=== PATIENT | female | born 1955 | race Caucasian/White ===

== ENCOUNTER → 2025-01-10 | Day surgery (SDC) | payer MEDICARE ==
[~2025-01-10] MED LIST: Sodium Bicarbonate 2.5 MEQ/5 ML SDV ONE
[2025-01-10 09:31] LABS: Hematocrit 33.4 % (34.9-44.5); Hemoglobin 11.6 g/dL (12.0-15.5); Mean Corpuscular Hemoglobin 35.2 pg (27.0-33.0); Mean Corpuscular Volume 101.2 fL (81.6-98.3); Platelet Count 150 10x3/uL (150-450); Red Blood Cell (RBC) Count 3.30 10x6/uL (3.90-5.03); White Blood Cell (WBC) Count 2.06 10x3/uL (3.5-10.5)
[2025-01-10 09:38] LABS: INR-International Normal Ratio 1.1; Prothrombin Time 11.9 sec (9.5-12.1)
[2025-01-10 09:51] VITALS: BP 174/84; TEMP 99.5
[2025-01-10 11:20] LABS: MDiff Complete? YES; Platelet Adequacy Comment Appears Adequate; RBC Morphology Within Normal Limits
[2025-01-10 20:23] LABS: Fluid, LDH 66.0 U/L (Not Available); Fluid, Protein 1.4 g/dL (Not Available)
== END ==
LOC: CSHULT 08:57
PROVIDERS: ATTEND Internal Medicine Hematology & Oncology
PROC: 0W9G3ZZ Drainage of Peritoneal Cavity, Percutaneous Approach (ICD-10-PCS; principal; 2025-01-10)
DX: R18.8 Other ascites (principal); C50.919 Malignant neoplasm of unspecified site of unspecified female breast; C79.51 Secondary malignant neoplasm of bone; Z17.0 Estrogen receptor positive status [ER+]; Z17.21 Progesterone receptor positive status; Z17.32 Human epidermal growth factor receptor 2 negative status
CPT/HCPCS: 49083; 82042; 83615; 84157; 85025; 85610; 88112; 88341; 88342